=== PATIENT | female | born 1965 | race Caucasian/White ===

== ENCOUNTER 2016-12-09 10:13 | Observation (INO) | payer MEDICAID ==
[~2016-12-09] VITALS: Ht 157.5 cm; Wt 54.1 kg
[~2016-12-09 10:13] MED LIST: HYDR-3240 PO; IBUP200C8 PO; LIDOCAINE/MPF 2%-EPI 1:200K, 20 ML ONE; THROMBIN 5,000 UNIT VIAL TP ONE; TRANEXAMIC ACID 100 MG/ML, 10ML ONE; VANCOMYCIN 1,000 MG ONE
[2016-12-09] MEDS ORDERED: BUPIVACAINE LIPOSOME/PF INFIL ONE ×2 (10:22→14:51)
[2016-12-09 10:42] VITALS: BP 116/79
[2016-12-09] MEDS ORDERED: LACTATED RINGERS 1,000 ML IV SCH (10:45)
[2016-12-09] MEDS ORDERED: LIDOCAINE 1%, 2ML ONE (10:56)
[2016-12-09] MEDS ORDERED: LIDOCAINE 1%, 2ML SQ PRN (11:00)
[2016-12-09] MEDS ORDERED: REMIFENTANIL 2 MG ONE (11:51)
[2016-12-09] MEDS ORDERED: SUCCINYLCHOLINE 20 MG/ML, 10ML ONE (12:03)
[2016-12-09] MEDS ORDERED: ROCURONIUM 10 MG/ML ONE (12:03)
[2016-12-09] MEDS ORDERED: MIDAZOLAM 1 MG/ML, 2ML ONE (12:03)
[2016-12-09] MEDS ORDERED: PROPOFOL 10 MG/ML, 20ML ONE ×2 (12:03)
[2016-12-09] MEDS ORDERED: ONDANSETRON 2MG/ML, 2ML ONE (12:03)
[2016-12-09] MEDS ORDERED: DEXAMETHASONE 4 MG/ML, 1ML ONE (12:03)
[2016-12-09] MEDS ORDERED: CEFAZOLIN 1,000 MG ONE (12:03)
[2016-12-09] MEDS ORDERED: FENTANYL PF 100 MCG/2ML ONE ×3 (12:05→15:38)
[2016-12-09] MEDS ORDERED: KETAMINE 10 MG/ML, 20ML ONE (12:11)
[2016-12-09] MEDS ORDERED: ACETAMINOPHEN 650 MG/20.3 ML UDC ONE (15:38)
[2016-12-09] MEDS ORDERED: OXYcodone 5 MG/5 ML ORAL.SOL UDC ONE (15:38)
[2016-12-09] MEDS: FENTANYL PF 100 MCG/2ML IV PRN ×2 (15:38→16:03)
[2016-12-09] MEDS ORDERED: HYDROmorphone 1 MG/ML, 1ML ONE (15:38)
[2016-12-09] MEDS: HYDROmorphone 1 MG/ML, 1ML IV PRN ×2 (15:40→16:00)
[2016-12-09] MEDS ORDERED: MEPERIDINE/PF 25MG/0.5ML ONE (15:48)
[2016-12-09] MEDS ORDERED: MEPERIDINE/PF 25MG/0.5ML IVPush PRN (16:00)
[2016-12-09] MEDS ORDERED: EPHEDRINE 50 MG/ML, 1ML IVPush PRN (16:00)
[2016-12-09] MEDS ORDERED: hydrALAzine 20 MG/ML, 1ML IV PRN (16:00)
[2016-12-09] MEDS ORDERED: PROMETHAZINE 25 MG/ML, 1ML IV PRN (16:00)
[2016-12-09] MEDS ORDERED: OXYcodone 5 MG/5 ML ORAL.SOL UDC PO PRN (16:00)
[2016-12-09] MEDS ORDERED: DIPHENHYDRAMINE 50 MG/ML, 1ML IVPush PRN (16:00)
[2016-12-09] MEDS ORDERED: OXYcodone/APAP 7.5/325MG TABLET PO PRN (16:00)
[2016-12-09] MEDS ORDERED: ONDANSETRON 2MG/ML, 2ML IVPush PRN ×2 (16:00)
[2016-12-09] MEDS ORDERED: MIDAZOLAM 1 MG/ML, 2ML IV PRN (16:00)
[2016-12-09] MEDS ORDERED: HYDROcodone/APAP 7.5-325MG/15ML UDC PO PRN (16:00)
[2016-12-09] MEDS ORDERED: LABETALOL 5MG/ML, 20ML IV PRN (16:00)
[2016-12-09] MEDS ORDERED: D5%-0.45NACL+KCL 20MEQ 1,000 ML IV SCH (16:00)
[2016-12-09] MEDS ORDERED: HYDROmorphone 1 MG/ML, 1ML IV PRN (16:00)
[2016-12-09] MEDS ORDERED: ACETAMINOPHEN 325 MG TABLET PO PRN (16:00)
[2016-12-09] MEDS ORDERED: DIAZEPAM 5 MG TABLET ONE (18:56)
[2016-12-09] MEDS ORDERED: DIAZEPAM 5 MG TABLET PO ONE (19:00)
[2016-12-09] MEDS ORDERED: OXYcodone/APAP 5/325MG TABLET PO PRN (19:00)
[2016-12-09] MEDS ORDERED: OXYcodone/APAP 5/325MG TABLET ONE (19:56)
== END 2016-12-09 15:00 | disposition home or self-care (01) ==
LOC: ORIP 10:13 → INTOOBSV 10:13
PROVIDERS: ADMIT Orthopaedic Surgery Orthopaedic Surgery of the Spine; ATTEND Orthopaedic Surgery Orthopaedic Surgery of the Spine
DX: M51.36 Other intervertebral disc degeneration, lumbar region (principal); M43.16 Spondylolisthesis, lumbar region; M48.06 Spinal stenosis, lumbar region
CPT/HCPCS: 20931; 20936; 22612; 22840; 63047; 72100; C1713; C1762; C1767; C9290; G0378; J0330; J0690; J1100; J1170; J2175; J2250; J2405; J2704; J3010; J3370; J3490; J7120

== ENCOUNTER 2017-07-19 08:01 | Emergency (ER) | payer MEDICAID, OTHER ==
[~2017-07-19] VITALS: Ht 157.5 cm; Wt 59.5 kg
[~2017-07-19 08:01] MED LIST changes: -LIDOCAINE/MPF 2%-EPI 1:200K, 20 ML ONE; -THROMBIN 5,000 UNIT VIAL TP ONE; -TRANEXAMIC ACID 100 MG/ML, 10ML ONE; -VANCOMYCIN 1,000 MG ONE
[2017-07-19 09:42] LABS: BASOPHILS # (AUTO) 0.03 x10^3/uL (0-0.1); BASOPHILS % (AUTO) 0 % (0-1); EOSINOPHILS # (AUTO) 0.14 x10^3/uL (0-0.4); EOSINOPHILS % (AUTO) 2 % (1-7); LYMPHOCYTES # (AUTO) 1.96 x10^3/uL (1-3.4); LYMPHOCYTES % (AUTO) 27 % (22-44); MD NO; MEAN CORPUSCULAR HEMOGLOBIN 31.5 pg (27.0-34.8); MEAN CORPUSCULAR HGB CONC 33.8 g/dL (32.4-35.8); MEAN CORPUSCULAR VOLUME 93.1 fL (80-100); MEAN PLATELET VOLUME 7.7 fL (7.4-10.4); MONOCYTES # (AUTO) 0.43 x10^3/uL (0.2-0.8); MONOCYTES % (AUTO) 6 % (2-9); NEUTROPHILS # (AUTO) 4.63 x10^3/uL (1.8-6.8); NEUTROPHILS % (AUTO) 64 % (42-75); PLATELET COUNT 306 x10^3/uL (130-400); RED BLOOD COUNT 4.48 x10^6/uL (3.82-5.3)
[2017-07-19 09:51] LABS: INTERNATIONAL NORMALIZED RATIO 1.03 (0.93-1.1); PROTHROMBIN TIME 10.7 Seconds (9.6-11.5)
[2017-07-19 09:56] LABS: ALBUMIN 3.7 g/dL (3.4-5.0); ANION GAP 8 mmol/L (5-15); CALCIUM 8.6 mg/dL (8.5-10.1); CHLORIDE 109 mmol/L (98-107)
[2017-07-19 10:01] LABS: ALANINE AMINOTRANSFERASE 20 U/L (12-78); ALKALINE PHOSPHATASE 104 U/L (45-117); BILIRUBIN,TOTAL 0.8 mg/dL (0.2-1.0); CREATININE 0.71 mg/dL (0.55-1.02); TOTAL PROTEIN 7.4 g/dL (6.4-8.2); TROPONIN I < 0.015 ng/mL (0.000-0.045)
[2017-07-19 10:26] VITALS: BP 99/63
== END 2017-07-19 10:53 | disposition home or self-care (01) ==
LOC: ED 10:27
DX: R07.89 Other chest pain (principal)
CPT/HCPCS: 36415; 71045; 80053; 83690; 83880; 84484; 85025; 85610; 85730; 93005; 99285